=== PATIENT | female | born 1955 | race Caucasian/White ===

== ENCOUNTER 2016-08-19 21:41 | Emergency (ER) | payer MEDICARE, OTHER ==
[2016-08-20 04:54] LABS: HEMOGLOBIN 13.3 gm/dl (12.3-15.3); RED BLOOD COUNT 4.33 M/UL (4.00-5.10)
[2016-08-20 05:20] LABS: BUN/CREATININE RATIO 16 (0-10)
== END 2016-08-20 08:25 | disposition home or self-care (01) ==
LOC: ER1 21:41
PROVIDERS: Student in an Organized Health Care Education/Training Program
DX: J44.1 Chronic obstructive pulmonary disease with (acute) exacerbation (principal); B02.9 Zoster without complications; I10 Essential (primary) hypertension; J45.909 Unspecified asthma, uncomplicated
CPT/HCPCS: 36415; 71020; 80053; 82550; 82553; 83874; 83880; 84484; 85025; 93005; 94664; 96365; 96372; 99285; J1956; J2270; J2405

== ENCOUNTER 2021-07-21 21:41 | Inpatient (IN) | payer MEDICARE, OTHER ==
[~2021-07-21] VITALS: Ht 165.1 cm; Wt 108.9 kg
[2021-07-21 22:11] LABS: HEMOGLOBIN 13.5 gm/dl (12.3-15.3); RED BLOOD COUNT 4.35 M/UL (4.00-5.10); WHITE BLOOD COUNT 16.7 K/UL (4.5-11.0)
[2021-07-21 23:03] LABS: BUN/CREATININE RATIO 22 (0-10)
[2021-07-22 05:35] LABS: HEMOGLOBIN 13.2 gm/dl (12.3-15.3); RED BLOOD COUNT 4.28 M/UL (4.00-5.10); WHITE BLOOD COUNT 16.4 K/UL (4.5-11.0)
[2021-07-22 05:55] LABS: BUN/CREATININE RATIO 24 (0-10)
[2021-07-22] MEDS ORDERED: LISINOPRIL40 MG PO (12:33)
[2021-07-22] MEDS ORDERED: NORVASC5 MG PO (12:33)
[2021-07-22] MEDS ORDERED: SINGULAIR10 MG PO (12:34)
[2021-07-22] MEDS ORDERED: LASIX20 MG PO (12:35)
[2021-07-22] MEDS ORDERED: K-TAB ER20 MEQ PO (12:37)
[2021-07-22] MEDS ORDERED: PERCOCET 10-321 EACH PO (12:40)
[2021-07-22] MEDS ORDERED: NEURONTIN400 MG PO (12:41)
[2021-07-22] MEDS ORDERED: SOMA350 MG PO (12:42)
[2021-07-23 04:07] LABS: HEMOGLOBIN 12.2 gm/dl (12.3-15.3); RED BLOOD COUNT 3.97 M/UL (4.00-5.10); WHITE BLOOD COUNT 15.6 K/UL (4.5-11.0)
[2021-07-23 04:30] LABS: BUN/CREATININE RATIO 33 (0-10)
[2021-07-23] MEDS ORDERED: ALBUTEROL2.5 MG/3 M INH (11:16)
[2021-07-23] MEDS ORDERED: PROVENTIL HFA6.7 GM INH (11:16)
[2021-07-23] MEDS ORDERED: SYMBICORT 160-1 INHA INH (11:17)
[2021-07-23] MEDS ORDERED: IBUPROFEN800 MG PO (11:18)
[2021-07-23] MEDS ORDERED: PROTONIX40 MG PO (11:19)
[2021-07-23] MEDS ORDERED: ARTHRITIS PAIN150 GM TP (11:20)
[2021-07-23] MEDS ORDERED: CVS TENSION HE1 EACH PO (11:23)
[2021-07-23] MEDS ORDERED: VITAMIN B-121000 MCG PO (11:24)
[2021-07-23] MEDS ORDERED: BIOFREEZE89 ML TP (11:24)
[2021-07-23] MEDS ORDERED: METFORMIN HCL1000 MG PO (12:37)
[2021-07-23] MEDS ORDERED: LANTUS SOL100 UNIT/1 SQ (12:39)
[2021-07-23] MEDS ORDERED: KLONOPIN2 MG PO (12:42)
[2021-07-24 03:35] LABS: BUN/CREATININE RATIO 36 (0-10)
[2021-07-24 04:25] LABS: HEMOGLOBIN 12.5 gm/dl (12.3-15.3); RED BLOOD COUNT 4.05 M/UL (4.00-5.10); WHITE BLOOD COUNT 12.5 K/UL (4.5-11.0)
[2021-07-25 03:04] LABS: HEMOGLOBIN 12.9 gm/dl (12.3-15.3); RED BLOOD COUNT 4.19 M/UL (4.00-5.10); WHITE BLOOD COUNT 11.7 K/UL (4.5-11.0)
[2021-07-25 03:24] LABS: BUN/CREATININE RATIO 40 (0-10)
[2021-07-26 03:37] LABS: RED BLOOD COUNT 4.24 M/UL (4.00-5.10); WHITE BLOOD COUNT 11.3 K/UL (4.5-11.0)
[2021-07-26 04:34] LABS: BUN/CREATININE RATIO 32 (0-10)
[2021-07-26] MEDS ORDERED: LANTUS SOL100 UNIT/1 SQ ×2 (08:43→09:29)
[2021-07-26] MEDS ORDERED: DOCUSATE SODIU100 MG PO (08:43)
[2021-07-26] MEDS ORDERED: MEDROL DOSEPAK 24 MG PO (08:44)
[2021-07-26] MEDS ORDERED: HUMALOG 10100 UNITS/ SC (08:44)
[2021-07-26] MEDS ORDERED: CEFUROXIME500 MG PO (08:56)
[2021-07-26] MEDS ORDERED: AZITHROMYCIN500 MG PO (08:56)
[2021-07-26] MEDS ORDERED: SPIRIVA RESPIMAT4 GM INH (08:56)
[2021-07-26] MEDS ORDERED: LASIX20 MG PO (09:29)
[2021-07-26] MEDS ORDERED: OMNICEF 300 MG300 MG PO (09:29)
[2021-07-26] MEDS ORDERED: VITAMIN D21250 MCG PO (09:51)
== END 2021-07-26 12:44 | disposition home or self-care (01) | DRG 291 ==
LOC: ER1 21:41 → CDU 07-22 04:09 → M/S 07-22 04:09
PROVIDERS: Internal Medicine; Physician Assistant; Student in an Organized Health Care Education/Training Program; ADMIT Internal Medicine
PROC: B24BZZZ Ultrasonography of Heart with Aorta (ICD-10-PCS; principal; 2021-07-22)
DX: I11.0 Hypertensive heart disease with heart failure (principal); J96.21 Acute and chronic respiratory failure with hypoxia; I50.33 Acute on chronic diastolic (congestive) heart failure; J96.22 Acute and chronic respiratory failure with hypercapnia; J44.1 Chronic obstructive pulmonary disease with (acute) exacerbation; E66.2 Morbid (severe) obesity with alveolar hypoventilation; Z20.822 Contact with and (suspected) exposure to COVID-19; M54.9 Dorsalgia, unspecified; G89.29 Other chronic pain; E11.9 Type 2 diabetes mellitus without complications; F17.210 Nicotine dependence, cigarettes, uncomplicated; M54.50 Low back pain, unspecified; E78.5 Hyperlipidemia, unspecified; Z96.652 Presence of left artificial knee joint; U07.0 Vaping-related disorder; Z99.81 Dependence on supplemental oxygen; Z91.81 History of falling; Z98.890 Other specified postprocedural states; Z83.3 Family history of diabetes mellitus; Z79.4 Long term (current) use of insulin; Z79.899 Other long term (current) drug therapy; Z90.710 Acquired absence of both cervix and uterus; Z68.39 Body mass index [BMI] 39.0-39.9, adult; Z71.6 Tobacco abuse counseling
CPT/HCPCS: ECHO; 0240U; 36415; 36600; 71045; 71046; 80048; 80053; 81001; 82550; 82553; 82607; 82746; 82747; 82803; 82962; 83036; 83735; 83880; 84100; 84439; 84443; 84484; 85025; 93005; 93306; 94640; 94660; 94664; 94667; 94668; 94760; 96374; 96375; 99285; C9113; J0456; J0696; J1100; J1650; J1940; J2920; J7050

== ENCOUNTER 2021-08-28 01:06 | Inpatient (IN) | payer MEDICARE, OTHER ==
[~2021-08-28] VITALS: Ht 165 cm; Wt 117.0 kg
[~2021-08-28 01:06] MED LIST: ALBUTEROL2.5 MG/3 M INH; ARTHRITIS PAIN150 GM TP; AZITHROMYCIN500 MG PO; BIOFREEZE89 ML TP; CEFUROXIME500 MG PO; CVS TENSION HE1 EACH PO; DOCUSATE SODIU100 MG PO; HUMALOG 10100 UNITS/ SC; IBUPROFEN800 MG PO; KLONOPIN1 MG PO; LANTUS SOL100 UNIT/1 SQ; LASIX20 MG PO; LISINOPRIL40 MG PO; MEDROL DOSEPAK 24 MG PO; METFORMIN HCL1000 MG PO; NEURONTIN400 MG PO; NORVASC5 MG PO; OMNICEF 300 MG300 MG PO; PERCOCET 10-321 EACH PO; POTASSIUM CHLO20 ME2 PO; PROTONIX40 MG PO; PROVENTIL HFA6.7 GM INH; SINGULAIR10 MG PO; SOMA350 MG PO; SPIRIVA RESPIMAT4 GM INH; SULFAMETHOXAZO1 EACH PO; SYMBICORT 160-1 INHA INH; VITAMIN B-121000 MCG PO; VITAMIN D21250 MCG PO
[2021-08-28 02:53] LABS: HEMOGLOBIN 12.3 gm/dl (12.3-15.3); RED BLOOD COUNT 4.08 M/UL (4.00-5.10); WHITE BLOOD COUNT 9.6 K/UL (4.5-11.0)
[2021-08-28 03:16] LABS: BUN/CREATININE RATIO 23 (0-10)
[2021-08-28] MEDS ORDERED: FUROSEMIDE20 MG PO (15:59)
[2021-08-28] MEDS ORDERED: DUREZOL5 ML OP (16:00)
[2021-08-28] MEDS ORDERED: ELIQUIS5 MG PO (16:01)
[2021-08-28] MEDS ORDERED: ALBUTEROL2.5 MG/3 M INH (16:05)
[2021-08-28] MEDS ORDERED: VITAMIN D21250 MCG PO (16:06)
--- NOTE | 2021-08-29 02:31 | NUR ---
PATIENT ALERT AND ORIENTED REFUSING TO WEAR MEDICAL EQUIPMENT AND REFUSING MEDICATIONS, AWARE
--- NOTE | 2021-08-29 02:55 | NUR ---
MULTIPLE NURSES HAVE TRIED WEAR MONITORING AND TAKE MEDICATION AND SHE REFUSED
--- NOTE | 2021-08-29 05:00 | NUR ---
PATIENT REFUSES NEW IV PLACEMENT, AWARE
[2021-08-29 05:35] LABS: HEMOGLOBIN 11.6 gm/dl (12.3-15.3); RED BLOOD COUNT 3.86 M/UL (4.00-5.10)
[2021-08-29 05:36] LABS: WHITE BLOOD COUNT 15.3 K/UL (4.5-11.0)
[2021-08-29 05:55] LABS: BUN/CREATININE RATIO 37 (0-10)
--- NOTE | 2021-08-30 01:28 | NUR ---
Came to speak with PT about signing out AMA. PT alert and oriented x3. RN Jaclyn was concerened if PT had a capacity to make decisions related to PT waking up and not knowing where she was. I talked with PT about why she wanted to leave and PT stated that she would have left today if she knew her grandson had her truck here. PT stated she was in the hospital at [facility], that she is on the second floor and that the month is august. PT was advised of the risk of leaving especially with her HR so high and PT stated that if it is her time to go, it is her time to go and she doesn't want to in a hospital bed waiting on her HR rate to come home. Dr Lara was notified to come see PT and agreed to come see PT, but PT stated she did not want to stay and see the DrAshley that she wanted to go now.
--- NOTE | 2021-08-30 01:35 | NUR ---
0017-respiratory approached me in another patients room and said that this patient was wanting to use the bathroom and was cussing. upon assessment of patient she told me she was going home after she used the bathroom. i explained the importance of staying to the patient and she was still insisting to go home. i assessed patient orientation status and she told me she didn't know where we was and that she thought we was in the back of a trailer. i told patient she was at the hospital. i notified housekeeper and laundry assistant to talk to patient because of my concern for her safety and patient was able to answer all orientation questions. dr avila came and spoke with patient and she still wanted to go home.
== END 2021-08-30 01:56 | disposition left against medical advice (07) | DRG 291 ==
LOC: ER1 01:06 → CDU 05:19 → CCU 05:19
PROVIDERS: Family Medicine; ADMIT Internal Medicine
DX: I11.0 Hypertensive heart disease with heart failure (principal); J96.21 Acute and chronic respiratory failure with hypoxia; J96.22 Acute and chronic respiratory failure with hypercapnia; I50.31 Acute diastolic (congestive) heart failure; J44.1 Chronic obstructive pulmonary disease with (acute) exacerbation; E66.2 Morbid (severe) obesity with alveolar hypoventilation; L03.116 Cellulitis of left lower limb; I48.91 Unspecified atrial fibrillation; E78.5 Hyperlipidemia, unspecified; I87.2 Venous insufficiency (chronic) (peripheral); I27.20 Pulmonary hypertension, unspecified; E11.9 Type 2 diabetes mellitus without complications; Z20.822 Contact with and (suspected) exposure to COVID-19; F17.200 Nicotine dependence, unspecified, uncomplicated; M51.36 Other intervertebral disc degeneration, lumbar region; G89.29 Other chronic pain; Z99.81 Dependence on supplemental oxygen; Z79.01 Long term (current) use of anticoagulants; Z90.49 Acquired absence of other specified parts of digestive tract; Z98.890 Other specified postprocedural states; Z90.710 Acquired absence of both cervix and uterus; Z82.49 Family history of ischemic heart disease and other diseases of the circulatory system; Z79.4 Long term (current) use of insulin; Z83.3 Family history of diabetes mellitus; Z68.39 Body mass index [BMI] 39.0-39.9, adult; Z91.81 History of falling
CPT/HCPCS: 71045; 80053; 82550; 82553; 82803; 82962; 83605; 83735; 83880; 84100; 84484; 85025; 86140; 87040; 93005; 94640; 94660; 94664; 94760; 96374; 96375; 96376; 99285; J1940; J2185; J2920; J2930